=== PATIENT | male | born 1990 | race Caucasian/White ===

== ENCOUNTER 2024-10-10 12:40 | Emergency (ER) | payer OTHER, SELFPAY ==
[2024-10-10 12:41] VITALS: BP 147/92
[2024-10-10 13:02] VITALS: BMI 26.5
--- NOTE | 2024-10-10 13:18 | ED.GENMED ---
History of Present Illness
General
Chief Complaint: Skin Surface Trauma
Source: patient
Exam Limitations: none
Time Seen by Provider: 10/10/24 12:58
Nursing documentation reviewed up to this point in time: agreed with
History of Present Illness
History of Present Illness:
Patient is a 34-year-old male presenting to the emergency department with lacerations to left second digit. Patient states he was using a blade in a workshop when he accidentally sliced his finger. No other injury sustained. Patient denies any
numbness/tingling in affected digit. No difficulties with range of motion in left second digit.
Tetanus shot was updated this past year.
Past History
Past History
ED Past Medical History: None
ED Past Surgical History: Other ([place] teeth)
Social History
Tobacco: Non-smoker
Drug: None
Personal: Single
Living: with family
Review of Systems
Review of Systems
Allergies reviewed?: Yes
All Other Systems: ROS reviewed and negative except as documented in HPI and ROS
Phy Exam
Physical Exam
Physical Exam:
Vitals: Patient's vital signs are stable. Afebrile
General: Patient is well appearing, no acute distress
Skin: Approximately 2 cm laceration to left second digit on volar aspect of medial MCP joint
Head: Normocephalic, atraumatic
Throat: Protecting airway
Neck: Normal ROM, no cervical spine tenderness
Cardiac: Regular rate
Pulm: No apparent respiratory distress
Abdomen: Nondistended
Extremities: Laceration to left second digit as described above; excellent range of motion in MCP, PIP, and DIP joints of left second digit against resistance, cap refill WNL, sensation fully intact, palpable left radial pulse
Neuro: Grossly intact
Psychiatric: Normal affect.
Course
Vital Signs
Initial and Last Documented VS:
Initial Vital Signs
Temp Pulse Resp BP Pulse Ox
98.9 F 72 18 147/92 100
10/10/24 12:41 10/10/24 12:41 10/10/24 12:41 10/10/24 12:41 10/10/24 12:41
Last Documented Vital Signs
Temp Pulse Resp BP Pulse Ox
98.9 F 80 18 140/80 100
10/10/24 12:41 10/10/24 15:04 10/10/24 15:04 10/10/24 15:04 10/10/24 15:04
Procedures
Laceration Closure
Left Second Finger(s):
Status of Wound: clean
Size of Wound in cm: 2
Description of Wound Edges: ragged
Preparation: cleaned with saline
Anesthesia: 1% Lidocaine
Revision/Debridement: routine- no revision
Wound exploration: explored to base- no FB
Type of Closure: single layer closure
Skin Closure Material: 5-0 nylon
Number of sutures: 3
MDM/Problems Addressed
Differential Diagnosis Includes:
Not limited to: Laceration, foreign body, etc.
MDM/Problems Addressed:
34-year-old male with laceration to left second digit. Vitals and exam as above. Patient has a approximate 2 cm laceration of volar aspect of second digit at medial MCP joint. Very minimal bleeding. There is no evidence of tendon involvement.
Affected digit neurovascularly intact. Wound will require primary closure with sutures. Tetanus shot up-to-date. Obtained verbal consent from patient
Wound was anesthetized with 1% plain lidocaine. Thoroughly irrigated with normal saline without any visualized foreign body. Laceration closed with three 5-0 nylon simple interrupted sutures with excellent approximation of wound edges. Hemostasis
obtained. Patient tolerated procedure well. Will place bulky dressing. Wound care instructions discussed at length with patient�advised limiting range of motion in affected joint while healing. Patient will monitor closely for signs infection
and have sutures removed in 10 to 14 days with primary care. Return precautions discussed. Patient otherwise stable for discharge home.
Chronic conditions affecting care:
N/A
Acute Exacerbation and/or Progression of Chronic Illness:
N/A
*Pulse Oximetry
Patient hypoxic: no
*EKG
Interpreted by ED Provider?: NA
*Wire Drawing Machine Tender Interpretation
Rate: Wire Drawing Machine Tender- N/A
*Critical Care Note
Total Time (30-74mins, 75-104mins- exclusive of procedures): Not Applicable
ED Attending Note
-
Portions of this chart may have been created with voice recognition software.� Occasional wrong word or��sound alike� substitutions may have occurred due to the inherent limitations of voice recognition software.
Discharge Plan
Departure
Patient Disposition: Home (Routine Discharge)
Date of Disposition: 10/10/24
Time of Disposition: 14:46
Patient with high blood pressure during this ER visit?: Yes
Discharge Problem:
Laceration of finger of left hand
Instructions: Wound Care (DC), Laceration Repair With Stitches (DC), BLOOD PRESSURE
Prescriptions:
No Action
No Meds [No Current Medications]
0
Referrals:
Jm Núñez MD [Family Provider] - Follow up in 10 days
Activity Restrictions/Additional Instructions:
Return to the emergency department with any numbness/tingling in affected digit or signs of infection including fever, significant redness or swelling around wound, pus draining from wound, red streaking from wound, or any other concern
-As discussed�your laceration was closed with 3 stitches today. For the next 24 hours�you should keep wound dry with bandage in place. You should then be sure to remove bandage daily and wash gently with soap and water. Keep covered until
stitches are removed. Try to limit range of motion while wound is healing. Stitches should be removed in 10 to 14 days. This can be done at primary care office or urgent care.
-Monitor closely for signs of infection.
Monitor symptoms closely and return to the emergency department with any acute worsening/new symptoms or any other concerns
Interventions
Interventions:
*Risk Screen - Suicide Last Done: 10/10/24 12:41
*General Assessment Last Done: 10/10/24 12:41
*Neglect/Abuse Screening Last Done: 10/10/24 13:02
*ED- Fall Risk Assessment Last Done: 10/10/24 12:41
*ED COVID-19 Vaccine History Last Done: 10/10/24 12:41
*Nursing Disposition Last Done: 10/10/24 15:04
ED-Skin Assessment Last Done: 10/10/24 13:02
Discharge Date and Time
Discharge Date/Time: 10/10/24 15:05
Print Language: BELARUSIAN
[2024-10-10 15:04] VITALS: BP 140/80
== END 2024-10-10 15:05 | disposition home or self-care (01) ==
LOC: EMR 12:40
PROVIDERS: EMERGENCY PHYSICIAN Student in an Organized Health Care Education/Training Program; FAMILY PHYSICIAN Family Medicine
DX: S61.211A Laceration without foreign body of left index finger without damage to nail, initial encounter (principal); W26.8XXA Contact with other sharp object(s), not elsewhere classified, initial encounter; R03.0 Elevated blood-pressure reading, without diagnosis of hypertension
CPT/HCPCS: 99282; 12001